=== PATIENT | female | born 1990 | race Caucasian/White ===

== ENCOUNTER 2022-06-14 08:58 | Inpatient (IN) | payer MEDICAID, SELFPAY ==
--- NOTE | ~2022-06-14 | CT_ITS ---
CT of the Abdomen and Pelvis: Indication: Abdominal pain Technique: 2.5 mm axial scans were obtained through the abdomen and pelvis following intravenous adm inistration of 100 cc of Omnipaque 350. Dose reduction technique was used on this scan by utilizing a utomated exposure control and iterative reconstruction technique. The dose-length product (DLP) was 3 22.90 mGy-cm. Findings: Scans through the lung bases are unremarkable. The liver, spleen, adrenals and kidneys are within normal limits. Cholecystectomy clips are present. No evidence of aortic aneurysm. No lymphadenopathy. Suggestion of minimal inflammatory change in the groove between the pancreas and duodenum, with a 1.1 cm low-density mass or possible cystic structur e (coronal image 47). No bowel obstruction or bowel wall thickening. There is no evidence to suggest acute appendicitis. Images through the pelvis were performed. Urinary bladder unremarkable. No adnexal mass seen. No asci ra. Impression: Probable mild inflammatory change between the pancreatic head and duodenum. Consider peptic ulcer dis ease, duodenitis, or groove pancreatitis. Associated 1.1 cm low-density mass or cystic structure iden tified in the pancreatic head or within the pancreaticoduodenal groove. Correlate clinically. Conside r short-term follow-up exam in 1-3 months to reassess. Reviewed, dictated and finalized at location M. Impression: Probable mild inflammatory change between the pancreatic head and duodenum. 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 Associated 1.1 cm low-density mass or cystic structure identified in the pancreatic head or wi thin the pancreaticoduodenal groove. Correlate clinically. Consider short-term follow-up exam in 1-3 months to reassess.
[2022-06-14 09:01] VITALS: BP 98/68; PULSE 129; RESP 20; TEMP 36.8; O2SAT 99
--- NOTE | 2022-06-14 09:07 | ECG_ITS ---
Measurements Intervals [place] Rate: 116 P: 72 PA: 127 QRS: 78 QRSD: 96 T: 28 QT: 381 QTc: 529 Interpretive Statements SINUS TACHYCARDIA NONSPECIFIC ST & T-WAVE ABNORMALITY ABNORMAL RHYTHM ECG NO PREVIOUS ECG AVAILABLE FOR COMPARISON Electronically Signed On 06-14-2022 10:43:44 CDT by Tino Cleary M.D.
--- NOTE | 2022-06-14 09:09 | PC.NURSE ---
Patient reports taking xanax yesterday.
[2022-06-14] MEDS: SODIUM CHLORIDE 0.9% IV 1,000 ML 999 ML IV CONT (09:20)
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
[2022-06-14] MEDS: PROMETHAZINE HCL 25 MG/ML AMPUL 12.5 MG IV PUSH (09:21)
[2022-06-14 09:34] LABS: Basophils Percent Auto 0.4 % (0.2-1.2); Eosinophils Percent Auto 0.4 % (0-4.4); Hematocrit 51.9 % (37.0-47.0); Hemoglobin 18.3 g/dL (12.0-15.0); Immature Granulocyte Absolute 0.04 K/mm3 (0.00-0.031); Immature Granulocyte Percent A 0.4 % (0-0.5); Lymphocytes Absolute Auto 2.38 K/mm3 (0.9-3.2); Lymphocytes Percent Auto 21.4 % (18.3-44.2); Mean Corpuscular HGB Conc 35.3 g/dl (32-36); Mean Corpuscular Hemoglobin 34.9 pg (26-34); Mean Platelet Volume 9.2 fl (7.4-10.4); Monocytes Absolute Auto 1.3 K/mm3 (0.1-0.6); Monocytes Percent Auto 11.7 % (2.6-8.5); Neutrophils Absolute Auto 7.3 K/mm3 (1.3-6.7); Neutrophils Percent Auto 65.7 % (45.5-73.1); Platelet Count Result 363 k/mm3 (150-375); Red Blood Count 5.24 M/mm3 (4.2-5.4); Red Cell Distribution Width 12.5 % (11.5-14.5); White Blood Count 11.1 K/mm3 (4.5-10.0)
[2022-06-14 09:48] LABS: Alanine Aminotransferase 69 U/L (6-35); Albumin Level 5.5 g/dL (3.5-5.1); Alkaline Phosphatase 109 U/L (38-126); Anion Gap 18 mmol/L (8-16); Aspartate Amino Transferase 74 U/L (14-36); Bilirubin,Total 1.5 mg/dL (0.2-1.3); Blood Urea Nitrogen 29 mg/dL (7-17); Calcium 10.4 mg/dL (8.4-10.2); Carbon Dioxide 30 mmol/L (22-30); Chloride 81 mmol/L (98-107); Estimated CRCL calculation 59 ml/min; Estimated Glomerular Filt Rate 58; Glucose 123 mg/dL (65-110); Lipase 118 U/L (23-300); Potassium 2.9 mmol/L (3.4-5.0); Sodium 129 mmol/L (137-145)
[2022-06-14 10:29] VITALS: BP 147/100; PULSE 112; RESP 18; O2SAT 100
[2022-06-14 10:30] VITALS: O2SAT 100
[2022-06-14] MEDS: ONDANSETRON INJ 4 MG/2 ML VIAL IV PUSH ×3 (10:51→20:59)
[2022-06-14 11:07] VITALS: BP 134/95; PULSE 74; RESP 15; O2SAT 100
[2022-06-14 11:41] LABS: Appearance Urine Clear (Clear); Bacteria Urine None Seen /hpf; Bilirubin Urine Negative (Negative); Blood Urine Trace (Negative); Color Urine Dark Yellow (Yellow); Glucose Urine UA Negative (Negative); Ketones Urine 4+ mg/dL (Negative); Leukocyte Esterase Ur 1+ LEU/UL (Negative); Need Manual Microscopic Reviewed; Nitrate Urine Negative (Negative); Protein Urine 1+ mg/dL (Negative); RBC Urine 0-2 /hpf (0-2); Specific Grav Ur 1.022 (1.001-1.035); Squamous Epithelial Cell Urine Moderate /hpf (Few)
[2022-06-14 11:43] LABS: Add Urine Microscopic? YES
[2022-06-14] MEDS: LACTATED RINGERS 1,000 ML 999 ML IV CONT (12:13)
[2022-06-14] MEDS: PANTOPRAZOLE SODIUM IV 40 MG VIAL IV PUSH (15:14)
[2022-06-14 15:15] VITALS: BP 132/91; PULSE 93; RESP 18; O2SAT 98
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
[2022-06-14 16:41] VITALS: BMI 23.6
--- NOTE | 2022-06-14 16:46 | ADMGEN ---
This patient, Paige Ozuna, was admitted to [facility] Surg Room 315-02 at 1620. Patient/family oriented to hospital policies and general routines including ID bracelet, bed and alarms, visiting hours, pain management, procedures, bathroom and other care routines, personal items, smoking policy, room service/diet, and visiting hours. Information on how to activate the Rapid Response Team has been discussed. Patient/Family are encouraged to report perceived risks to care and to ask questions if they do not understand what they are told or what they should do.
[2022-06-14] MEDS: SODIUM CHLORIDE 0.9% IV 1,000 ML 125 ML IV CONT (16:55)
[2022-06-14] MEDS: HYDROmorphone HCL INJ (*CRX) 1 MG/ML SYR 0.5 MG IV PUSH ×2 (16:55→20:18)
[2022-06-14 21:01] VITALS: BP 123/83; PULSE 88; RESP 16; TEMP 36.4; O2SAT 97
[2022-06-15] MEDS: SODIUM CHLORIDE 0.9% IV 1,000 ML 125 ML IV CONT ×2 (02:38→22:06)
[2022-06-15] MEDS: ONDANSETRON INJ 4 MG/2 ML VIAL IV PUSH ×5 (03:14→22:25)
[2022-06-15] MEDS: HYDROmorphone HCL INJ (*CRX) 1 MG/ML SYR 0.5 MG IV PUSH ×6 (03:15→22:25)
[2022-06-15 05:33] VITALS: BP 119/80; PULSE 90; RESP 16; TEMP 36.5; O2SAT 97
[2022-06-15 06:37] LABS: Lactic Acid Reflex 0.7 mmol/L (0.7-2.0)
[2022-06-15 06:41] LABS: Alanine Aminotransferase 58 U/L (6-35); Albumin Level 3.6 g/dL (3.5-5.1); Alkaline Phosphatase 56 U/L (38-126); Anion Gap 7 mmol/L (8-16); Aspartate Amino Transferase 59 U/L (14-36); Bilirubin,Total 0.9 mg/dL (0.2-1.3); Blood Urea Nitrogen 25 mg/dL (7-17); Calcium 7.8 mg/dL (8.4-10.2); Carbon Dioxide 31 mmol/L (22-30); Chloride 93 mmol/L (98-107); Estimated CRCL calculation 72 ml/min; Estimated Glomerular Filt Rate > 60; Glucose 73 mg/dL (65-110); Lipase 164 U/L (23-300); Potassium 2.7 mmol/L (3.4-5.0); Sodium 131 mmol/L (137-145)
[2022-06-15 07:01] LABS: Basophils Percent Auto 0.4 % (0.2-1.2); Eosinophils Absolute Auto 0.1 K/mm3 (0-0.3); Eosinophils Percent Auto 2.7 % (0-4.4); Hematocrit 38.9 % (37.0-47.0); Hemoglobin 13.3 g/dL (12.0-15.0); Immature Granulocyte Absolute 0.01 K/mm3 (0.00-0.031); Immature Granulocyte Percent A 0.2 % (0-0.5); Lymphocytes Absolute Auto 2.34 K/mm3 (0.9-3.2); Lymphocytes Percent Auto 45.5 % (18.3-44.2); Mean Corpuscular HGB Conc 34.2 g/dl (32-36); Mean Corpuscular Hemoglobin 35.4 pg (26-34); Mean Corpuscular Volume 103.5 fl (80-100); Mean Platelet Volume 9.2 fl (7.4-10.4); Monocytes Absolute Auto 0.5 K/mm3 (0.1-0.6); Monocytes Percent Auto 10.5 % (2.6-8.5); Neutrophils Absolute Auto 2.1 K/mm3 (1.3-6.7); Neutrophils Percent Auto 40.7 % (45.5-73.1); Platelet Count Result 195 k/mm3 (150-375); Red Blood Count 3.76 M/mm3 (4.2-5.4); Red Cell Distribution Width 12.3 % (11.5-14.5); White Blood Count 5.1 K/mm3 (4.5-10.0)
[2022-06-15] MEDS: POTASSIUM CHLORIDE INJ 40 MEQ in SODIUM CHLORIDE 0.9% IV 500 ML 130 MEQ IVPB ×2 (09:45→15:28)
[2022-06-15] MEDS: PANTOPRAZOLE SODIUM IV 40 MG VIAL IV PUSH (09:45)
[2022-06-15] MEDS: NICOTINE (*PBKC) 21 MG PATCH 1 PATCH TRANSDERM (09:45)
[2022-06-15 12:46] LABS: Potassium 3.2 mmol/L (3.4-5.0)
[2022-06-15 13:02] VITALS: BMI 23.6
[2022-06-15 14:00] VITALS: BP 124/79; PULSE 68; RESP 18; TEMP 36.4; O2SAT 99
--- NOTE | 2022-06-15 14:29 | PM.IMPN ---
Progress Note: A&P Assessment and Plan (1) Chronic pancreatitis: Code(s): K86.1 - Other chronic pancreatitis Status: Acute Assessment and Plan: The patient is NPO until she is less nauseated. CT of the abdomen was read as probable mild inflammatory change between the pancreatic head and duodenum. Consider peptic ulcer disease, duodenitis, or groove pancreatitis. Associated 1.1 cm low-density mass or cystic structure identified in the pancreatic head or within the pancreaticoduodenal groove. Correlate clinically. Consider short-term follow-up exam in 1-3 months to reassess. GI consulted The patient has been encouraged to stop drinking alcohol. Lipase level normal Analgesics and antiemetics as needed. IV fluids continued Pantoprazole BID (2) HPV in female: Code(s): B97.7 - Papillomavirus as the cause of diseases classified elsewhere Status: Acute Assessment and Plan: The patient stated that she was scheduled for colposcopy due to abnormal cervical cells and positive for HPV. However the patient was feeling ill and did not make it to her appointment. Patient will need to reschedule her outpatient appointment. (3) Tobacco use: Code(s): Z72.0 - Tobacco use Status: Acute Assessment and Plan: The patient has been encouraged to stop smoking. She was offered a nicotine patch. We discussed smoking cessation for approximately 5 minutes. Subjective Date/time seen: 06/15/22 14:29 Interval history: Patient complains of ongoing abdominal pain that radiates to the back. Patient's nausea has improved she has not vomited since she has been admitted to the floor. Patient states that she know she needs to cut back on her drinking and stop smoking. Patient states that she has several shots of whiskey a day. Review of Systems Review of Systems: All systems reviewed & are unremarkable except as noted in HPI and below Exam Narrative: GENERAL: Comfortable, no acute distress HENMT: moist mucous membranes EYES: EOM intact b/l NECK: no lymphadenopathy RESPIRATORY: clear to auscultation CARDIO: RRR GI: soft, tender to palpation, bowel sounds present SKIN: no rashes EXTREMITIES: no edema, redness or tenderness Objective Data Vital Signs Vital Signs: Vital Signs - 24 hr 06/14/22 15:15 06/14/22 18:16 06/14/22 21:01 Temperature 97.6 F Pulse Rate 93 88 Respiratory Rate 18 16 Blood Pressure 132/91 H 123/83 Pulse Oximetry 98 97 Oxygen Delivery Room Air 06/14/22 20:00 06/15/22 05:33 06/15/22 08:00 Temperature 97.7 F Pulse Rate 90 Respiratory Rate 16 Blood Pressure 119/80 Pulse Oximetry 97 Oxygen Delivery Room Air Room Air Intake/Output Intake/Output: Intake & Output 06/12/22 06/13/22 06/14/22 06/15/22 23:59 23:59 23:59 23:59 Intake Total 1999 1000 Balance 1999 1000 Meds/Results Medications: Active Medications Generic Name Dose Route Start Last Admin Trade Name Freq PRN Reason Stop Dose Admin Albuterol 2 puff 06/14/22 16:48 Albuterol Sulfate (*Sp) Aerosol 1 Puff INHALATION Q6HRT PRN Shortness Of Breath Hydromorphone HCl 0.5 mg 06/14/22 16:05 06/15/22 13:31 Hydromorphone Hcl Inj (*Crx) 1 Mg/Ml Syr IV PUSH 0.5 mg Q3H PRN Administration Pain Rated 7-10 Sodium Chloride 1,000 mls @ 125 mls/hr 06/14/22 15:15 06/15/22 02:38 Normal Saline Iv IV CONT 125 mls/hr .Q8H IONA Administration Potassium Chloride 40 meq/ 520 mls @ 130 mls/hr 06/15/22 14:24 Sodium Chloride IVPB 06/15/22 18:23 ONCE ONE Ketorolac Tromethamine 15 mg 06/14/22 16:05 Ketorolac 15 Mg/Ml Vial (*Bkc) IV PUSH Q6H PRN Pain Rated 4-6 Lorazepam 0.5 mg 06/14/22 16:05 Lorazepam Inj (*Crx) 2 Mg/Ml Vial IV PUSH Q6H PRN Anxiety Nicotine 1 patch 06/15/22 09:00 06/15/22 09:45 Nicotine (*Pbkc) 21 Mg Patch TRANSDERM 1 patch QAM
[2022-06-15] MEDS: KETOROLAC 15 MG/ML VIAL (*BKC) IV PUSH (17:10)
--- NOTE | 2022-06-15 18:53 | PC.NURSE ---
at 1825 pt used call light and asked to speak to nurse. nurse went to see pt at 1830 and pt c/o pain 7 out of 10. pt states the toradol helped at first but the pain quickly came back with a vengeance. pt was then given a dose of dilaudid at 1834. will reassess pain level at appropriate time
[2022-06-15 20:00] VITALS: O2SAT 100
[2022-06-15] MEDS: LORazepam INJ (*CRX) 2 MG/ML VIAL 0.5 MG IV PUSH (20:23)
[2022-06-15 20:28] VITALS: PULSE 82; RESP 18
[2022-06-15] MEDS: ALBUTEROL SULFATE (*SP) AEROSOL 1 PUFF 2 PUFF INHALATION (20:28)
[2022-06-15 21:30] VITALS: BP 127/92; PULSE 78; RESP 16; TEMP 36.1; O2SAT 100
[2022-06-15] MEDS: MELATONIN 5 MG TABLET PO (23:15)
[2022-06-16] MEDS: LORazepam INJ (*CRX) 2 MG/ML VIAL 0.5 MG IV PUSH ×3 (01:53→18:17)
[2022-06-16] MEDS: SODIUM CHLORIDE 0.9% IV 1,000 ML 125 ML IV CONT (04:49)
[2022-06-16] MEDS: HYDROmorphone HCL INJ (*CRX) 1 MG/ML SYR 0.5 MG IV PUSH ×5 (05:20→18:17)
[2022-06-16] MEDS: ONDANSETRON INJ 4 MG/2 ML VIAL IV PUSH ×4 (05:20→19:56)
[2022-06-16 05:44] VITALS: BP 127/80; PULSE 69; RESP 16; TEMP 36.1; O2SAT 100
[2022-06-16 06:06] LABS: Basophils Percent Auto 0.4 % (0.2-1.2); Eosinophils Absolute Auto 0.2 K/mm3 (0-0.3); Eosinophils Percent Auto 5.4 % (0-4.4); Hematocrit 41.1 % (37.0-47.0); Immature Granulocyte Absolute 0.01 K/mm3 (0.00-0.031); Immature Granulocyte Percent A 0.2 % (0-0.5); Lymphocytes Absolute Auto 2.35 K/mm3 (0.9-3.2); Lymphocytes Percent Auto 52.7 % (18.3-44.2); Mean Corpuscular HGB Conc 34.1 g/dl (32-36); Mean Corpuscular Hemoglobin 34.7 pg (26-34); Mean Corpuscular Volume 101.7 fl (80-100); Monocytes Absolute Auto 0.5 K/mm3 (0.1-0.6); Monocytes Percent Auto 10.8 % (2.6-8.5); Neutrophils Absolute Auto 1.4 K/mm3 (1.3-6.7); Neutrophils Percent Auto 30.5 % (45.5-73.1); Platelet Count Result 195 k/mm3 (150-375); Red Blood Count 4.04 M/mm3 (4.2-5.4); Red Cell Distribution Width 11.8 % (11.5-14.5); White Blood Count 4.5 K/mm3 (4.5-10.0)
[2022-06-16 06:28] LABS: Alanine Aminotransferase 49 U/L (6-35); Albumin Level 3.4 g/dL (3.5-5.1); Alkaline Phosphatase 51 U/L (38-126); Anion Gap 13 mmol/L (8-16); Aspartate Amino Transferase 38 U/L (14-36); Bilirubin,Total 1.1 mg/dL (0.2-1.3); Blood Urea Nitrogen 18 mg/dL (7-17); Calcium 7.4 mg/dL (8.4-10.2); Carbon Dioxide 18 mmol/L (22-30); Chloride 100 mmol/L (98-107); Estimated CRCL calculation 80 ml/min; Estimated Glomerular Filt Rate > 60; Glucose 61 mg/dL (65-110); Magnesium 1.9 mg/dL (1.6-2.3); Potassium 3.2 mmol/L (3.4-5.0); Sodium 131 mmol/L (137-145)
--- NOTE | 2022-06-16 07:08 | WPDGICN ---
Assessment and Plan Assessment and plan (1) Intractable vomiting: Code(s): R11.10 - Vomiting, unspecified Status: Acute Assessment and Plan: It appears that her symptoms are due to recurrence of pancreatitis. I suspect this is the 2nd episode of acute pancreatitis although her lipase is now normal. she has not vomited since admission. I will try her on a clear liquid diet today. (2) Chronic pancreatitis: Code(s): K86.1 - Other chronic pancreatitis Status: Acute Assessment and Plan: She had 1 prior episode of pancreatitis 6 months ago. She was told that she had a cyst draining into her stomach. It almost sounds as though she had endoscopic drainage of the pseudocyst but she does not I think that she had any endoscopy on her previous admission.. I discussed with her the fact that she needs to stop drinking alcohol altogether. She does not have a great deal of support because most of her friends, coworkers, and both her parents drink regularly. (3) Duodenitis: Code(s): K29.80 - Duodenitis without bleeding Status: Acute Assessment and Plan: CT scan shows: Probable mild inflammatory change between the pancreatic head and duodenum. Consider peptic ulcer disease, duodenitis, or groove pancreatitis. Associated 1.1 cm low-density mass or cystic structure identified in the pancreatic head or within the pancreaticoduodenal groove. Correlate clinically. Consider short-term follow-up exam in 1-3 months to reassess. (4) Hypokalemia: Code(s): E87.6 - Hypokalemia Status: Acute Assessment and Plan: potassium was 2.9 at admission. It Has improved, now 3.2. (5) Abnormal liver function: Code(s): R94.5 - Abnormal results of liver function studies Status: Acute Assessment and Plan: on admission, bilirubin was 1.5. Now is 0.9. LFTs were also elevated but improving. Plan Will advance diet as tolerated. Further investigation probably EGD in the morning. Most poorly, she will need counseling and guidance with her alcohol problem GI Consult Note Consult date/time: 06/16/22 07:08 HPI: Paige Ozuna is a 31 year old female Was admitted with 1 week history of nausea vomiting abdominal pain. The pain has gradually improved. Because of her symptoms she has had nothing to eat or drink for about 1 week. On admission she was found to be hypokalemic with potassium of 2.9. Sodium was also low at 129. She has a normal lipase but CT scan shows changes suggestive of pancreatitis with inflammatory changes between the head of the pancreas and the duodenum. The patient states that about 6 months ago she was hospitalized in [place] with pancreatitis. 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 She does not believe that she had a procedure such as ERCP or endoscopic ultrasound. She admits that her problem is drinking. She drinks [place] honey whiskey. She had cut back but never could completely. She has no history of pancreatitis or liver disease. Her gallbladder has been removed. There is no family history of pancreatic disease but there is a strong family history of alcohol use. Both of her parents drink alcohol heavily. Review of Systems Review of Systems: All systems reviewed & are unremarkable except as noted in HPI and below PMFSH Past Medical History Medical History Chronic pancreatitis HPV in female Surgical History Surgical History H/O oral surgery History of cholecystectomy Family History Family History Mother Hypertension Diabetes mellitus Cervical cancer Grandparent Breast cancer Social History Social History Social History: She lives with parents . She has no chi
[2022-06-16] MEDS: PANTOPRAZOLE SODIUM IV 40 MG VIAL IV PUSH ×2 (08:36→17:53)
[2022-06-16] MEDS: NICOTINE (*PBKC) 21 MG PATCH 1 PATCH TRANSDERM (08:36)
[2022-06-16] MEDS: ALBUTEROL SULFATE (*SP) AEROSOL 1 PUFF 2 PUFF INHALATION ×2 (08:45→18:37)
[2022-06-16 10:17] LABS: Glucose Point of Care 153 mg/dl (65-105)
--- NOTE | 2022-06-16 10:17 | PM.IMPN ---
Progress Note: A&P Assessment and Plan (1) Chronic pancreatitis: Code(s): K86.1 - Other chronic pancreatitis Status: Acute Assessment and Plan: Patient presented to the ED with c/o nausea and vomiting since Tuesday of last week. She has h/o pancreatitis and chronic alcohol abuse. CT of the abdomen was read as probable mild inflammatory change between the pancreatic head and duodenum. Consider peptic ulcer disease, duodenitis, or groove pancreatitis. Associated 1.1 cm low-density mass or cystic structure identified in the pancreatic head or within the pancreaticoduodenal groove. Correlate clinically. Consider short-term follow-up exam in 1-3 months to reassess. GI consulted and appreciate recommendations. Future EGD recommended. The patient has been encouraged to stop drinking alcohol. Consult care coordination for resources. Lipase level normal continue IV/PO analgesics and antiemetics as needed. continue IV fluids until taking good PO. Pantoprazole BID IV advanced to clear liquid diet today 06/16 (2) Tobacco use: Code(s): Z72.0 - Tobacco use Status: Chronic Assessment and Plan: The patient has been encouraged to stop smoking. She was offered a nicotine patch. We discussed smoking cessation for approximately 5 minutes. (3) Abnormal liver function: Code(s): R94.5 - Abnormal results of liver function studies Status: Acute Assessment and Plan: on admission T bili 1.5, AST 74, ALT 69, alk phos 109 CT shows liver within normal limits and patient is s/p cholecystectomy in the past She does have history of chronic alcohol use. Trend LFTs-T bili normalized and AST ALT trending down GI is following check hepatitis panel Alcohol abstinence was discussed in length with patient (4) Duodenitis: Code(s): K29.80 - Duodenitis without bleeding Status: Acute Assessment and Plan: Suggested on CT scan. Patient does have epigastric pain with complaints of indigestion. Continue PPI IV b.i.d. GI following and plans for EGD, possibly tomorrow 06/17 (5) Hypokalemia: Code(s): E87.6 - Hypokalemia Status: Acute Assessment and Plan: K 2.7 on admission. Replace with p.o. and IV supplements. 06/16 K 3.2, magnesium 1.9. Give potassium chloride 60 mEq p.o. x1 Patient is now. Trend BMP and supplement electrolytes as needed (6) Alcohol abuse: Code(s): F10.10 - Alcohol abuse, uncomplicated Status: Chronic Assessment and Plan: Chronic, last drink approximately 1 week ago per patient. Counseled on alcohol cessation. Care coordination consulted for community resources. We discussed briefly Vivitrol medication management for alcohol abuse and she may be interested in pursuing this. P.o. thiamin 100 mg daily and folic acid p.o. 1 mg daily initiated. Monitor CIWA (7) HPV in female: Code(s): B97.7 - Papillomavirus as the cause of diseases classified elsewhere Status: Acute Assessment and Plan: The patient stated that she was scheduled for colposcopy due to abnormal cervical cells and positive for HPV. However the patient was feeling ill and did not make it to her appointment. Patient will need to reschedule her outpatient appointment. Plan Code status: Full code Discharge disposition: Patient is from home. Discharge when tolerating a low-fat diet. Time Spent With Patient Time: 35 minutes Subjective Date/time seen: 06/16/22 10:17 She still has some epigastric pain, although it is tolerable with pain medications. She was advanced to clear liquids today and has some nausea with eating soup, but attributes this to eating too fast. Glucose was low on morning labs and she did report some shakiness. Repeat glucose 153 mg/dL after eating. She denies h/o diabetes, but does have chronic pancreatitis and reports not eating for approximately 1 week. Review of Systems Revsteven
[2022-06-16 11:26] LABS: Glucose Point of Care 121 mg/dl (65-105)
[2022-06-16] MEDS: POTASSIUM CHLORIDE 20 MEQ PACKET (FOR LIQUID) 60 MEQ PO (11:57)
[2022-06-16] MEDS: FOLIC ACID 1 MG TABLET PO (11:57)
[2022-06-16] MEDS: THIAMINE HCL 100 MG TABLET PO (11:57)
--- NOTE | 2022-06-16 12:18 | PC.NURSE ---
pt was able to eat breakfast today. she had a clear liquid tray and ate most of it. pt reports she felt slightly nauseated at first but when she slowed down eating, the nausea subsided and she was able to eat comfortably. pt also reports that she was able to keep this food down. pt states that this is the first time she was able to eat and not vomit in over a week.
[2022-06-16 14:00] VITALS: BP 126/62; PULSE 71; RESP 16; TEMP 36.3; O2SAT 100
[2022-06-16 16:33] LABS: Glucose Point of Care 81 mg/dl (65-105)
[2022-06-16 17:04] LABS: Hepatitis B Surface Antigen Negative (Negative)
[2022-06-16 17:10] LABS: HAV RESULT Negative (Negative); Hepatitis B Core IgM Result Negative (Negative)
[2022-06-16 17:22] LABS: Hepatitis C Virus Antibody Negative (Negative)
[2022-06-16 20:00] VITALS: BP 139/86; PULSE 73; RESP 16; O2SAT 100
[2022-06-16 21:49] VITALS: BP 139/86; PULSE 73; RESP 16; TEMP 36.1; O2SAT 100
[2022-06-16 23:18] LABS: Glucose Point of Care 77 mg/dl (65-105)
[2022-06-17] VITALS (11 sets, daily range): BP systolic 103–148; BP diastolic 75–90; PULSE 60–73; RESP 14–20; TEMP 36.1–36.8; O2SAT 100
[2022-06-17 00:15] LABS: Glucose Point of Care 130 mg/dl (65-105)
[2022-06-17] MEDS: LORazepam INJ (*CRX) 2 MG/ML VIAL IV PUSH ×3 (01:22→20:12)
[2022-06-17] MEDS: ONDANSETRON INJ 4 MG/2 ML VIAL IV PUSH ×4 (01:22→17:11)
[2022-06-17] MEDS: HYDROmorphone HCL INJ (*CRX) 1 MG/ML SYR 0.5 MG IV PUSH ×4 (01:23→21:52)
[2022-06-17 05:51] LABS: Glucose Point of Care 90 mg/dl (65-105)
[2022-06-17 06:17] LABS: Hematocrit 40.5 % (37.0-47.0); Mean Corpuscular HGB Conc 34.6 g/dl (32-36); Mean Corpuscular Hemoglobin 35.4 pg (26-34); Mean Corpuscular Volume 102.5 fl (80-100); Mean Platelet Volume 9.3 fl (7.4-10.4); Platelet Count Result 190 k/mm3 (150-375); Red Blood Count 3.95 M/mm3 (4.2-5.4); Red Cell Distribution Width 11.9 % (11.5-14.5); White Blood Count 5.6 K/mm3 (4.5-10.0)
[2022-06-17 06:32] LABS: Alanine Aminotransferase 48 U/L (6-35); Albumin Level 3.6 g/dL (3.5-5.1); Alkaline Phosphatase 54 U/L (38-126); Anion Gap 5 mmol/L (8-16); Aspartate Amino Transferase 37 U/L (14-36); Bilirubin,Total 0.7 mg/dL (0.2-1.3); Blood Urea Nitrogen 6 mg/dL (7-17); Calcium 8.1 mg/dL (8.4-10.2); Carbon Dioxide 26 mmol/L (22-30); Chloride 105 mmol/L (98-107); Estimated CRCL calculation 80 ml/min; Estimated Glomerular Filt Rate > 60; Glucose 87 mg/dL (65-110); Magnesium 2.1 mg/dL (1.6-2.3); Potassium 3.4 mmol/L (3.4-5.0); Sodium 136 mmol/L (137-145)
[2022-06-17 06:47] LABS: INR 1.2; Partial Thromboplastin Time 28.1 SECONDS (22.3-36.8); Prothrombin Time 14.4 Seconds (11.1-14.7)
[2022-06-17] MEDS: SODIUM CHLORIDE 0.9% IV 1,000 ML 125 ML IV CONT ×2 (08:29→21:23)
[2022-06-17] MEDS: PANTOPRAZOLE SODIUM IV 40 MG VIAL IV PUSH ×2 (11:16→17:11)
[2022-06-17 11:18] LABS: Glucose Point of Care 80 mg/dl (65-105)
[2022-06-17] MEDS: LACTATED RINGERS 1,000 ML 150 ML IV CONT (13:35)
--- NOTE | 2022-06-17 14:56 | WPDANESEPPF ---
Anes - Initial Pre Proc Eval Procedure: Operation Date: 06/17/22 15:45 Proposed Procedures p Esophagogastroduodenoscopy - Jed Bell MD Date/Time: 06/17/22 14:56 Surgeon: César Augustine MD Pre Op Diagnosis: Intractable Vomiting/Duodenitis/Chronic Pancreatit Patient Data Age: 31 Gender: F Height: 1.65 m Weight: 64.5 kg Last Vital Signs Temp 36.2 C L 06/17/22 13:25 Pulse 60 06/17/22 13:25 Resp 18 06/17/22 13:25 BP 142/90 H 06/17/22 13:25 Pulse Ox 100 06/17/22 13:25 O2 Del Method Room Air 06/17/22 13:25 Allergies Allergy/AdvReac Type Severity Reaction Status Date / Time No Known Allergies Allergy Verified 06/14/22 09:08 Home Medications Medication Instructions Recorded Confirmed Type esomeprazole magnesium 20 mg 20 mg PO DAILY 06/14/22 06/14/22 History capsule,delayed release (Nexium) ibuprofen 800 mg tablet 800 mg PO TID 06/14/22 06/14/22 History ondansetron HCl 8 mg tablet 8 mg PO TID 06/14/22 06/14/22 History Laboratory Tests 06/16/22 06/16/22 06/16/22 05:55 16:31 23:14 WBC RBC Hgb Hct MCV MCH MCHC RDW Plt Count MPV PT INR APTT Sodium Potassium Chloride Carbon Dioxide Anion Gap BUN Creatinine Estim Creat Clear Calc Estimated GFR Glucose POC Capillary Glucose 81 mg/dl mg/dl 77 mg/dl mg/dl (65-105) (65-105) Calcium Magnesium Total Bilirubin AST ALT Alkaline Phosphatase Total Protein Albumin Hepatitis A IgM Ab Negative (Negative) Hep Bs Antigen Negative (Negative) Hep B Core IgM Ab Negative (Negative) Hepatitis C Ab Screen Negative (Negative) 06/17/22 06/17/22 06/17/22 00:12 05:49 06:03 WBC 5.6 K/mm3 K/mm3 (4.5-10.0) RBC 3.95 M/mm3 L M/mm3 (4.2-5.4) Hgb 14.0 g/dL g/dL (12.0-15.0) Hct 40.5 % % (37.0-47.0) MCV 102.5 fl H fl (80-100) MCH 35.4 pg H pg (26-34) MCHC 34.6 g/dl g/dl (32-36) RDW 11.9 % % (11.5-14.5) Plt Count 190 k/mm3 k/mm3 (150-375) MPV 9.3 fl fl (7.4-10.4) PT INR APTT Sodium Potassium Chloride Carbon Dioxide Anion Gap BUN Creatinine Estim Creat Clear Calc Estimated GFR Glucose POC Capillary Glucose 130 mg/dl H mg/dl 90 mg/dl mg/dl (65-105) (65-105) Calcium Magnesium Total Bilirubin AST ALT Alkaline Phosphatase Total Protein Albumin Hepatitis A IgM Ab Hep Bs Antigen Hep B Core IgM Ab Hepatitis C Ab Screen 06/17/22 06/17/22 06/17/22 06:03 06:03 11:16 WBC RBC Hgb Hct MCV MCH MCHC RDW Plt Count MPV PT 14.4 Seconds Seconds (11.1-14.7) INR 1.2 APTT 28.1 SECONDS SECONDS (22.3-36.8) Sodium 136 mmol/L L mmol/L (137-145) Potassium 3.4 mmol/L mmol/L (3.4-5.0) Chloride 105 mmol/L mmol/L (98-107) Carbon Dioxide 26 mmol/L mmol/L (22-30) Anion Gap 5 mmol/L L mmol/L (8-16) BUN 6 mg/dL L D mg/dL (7-17) Creatinine 0.80 mg/dL mg/dL (0.7-1.0) Estim Creat Clear Calc 80 ml/min ml/min Estimated GFR > 60 (59 - ) G
[2022-06-17] MEDS: fentaNYL CITRATE INJ (*CRX) 100 MCG/2 ML VIAL 50 MCG IV PUSH (15:01)
--- NOTE | 2022-06-17 15:36 | P.PNIM_ITS ---
Progress Note: A&P Assessment and Plan (1) Chronic pancreatitis: Code(s): K86.1 - Other chronic pancreatitis Status: Acute Assessment and Plan: Patient presented to the ED with c/o nausea and vomiting since Tuesday of last week. She has h/o pancreatitis and chronic alcohol abuse. * CT of the abdomen was read as probable mild inflammatory change between the pancreatic head and duodenum. Consider peptic ulcer disease, duodenitis, or groove pancreatitis. Associated 1.1 cm low-density mass or cystic structure identified in the pancreatic head or within the pancreaticoduodenal groove. Correlate clinically. Consider short-term follow-up exam in 1-3 months to reassess. * GI consulted and appreciate recommendations. * The patient has been encouraged to stop drinking alcohol. Consult care coordination for resources. * Lipase level normal * continue IV/PO analgesics and antiemetics as needed. * continue IV fluids until taking good PO. * Pantoprazole BID IV * advanced to clear liquid diet today 06/16 (2) Tobacco use: Code(s): Z72.0 - Tobacco use Status: Chronic Assessment and Plan: The patient has been encouraged to stop smoking. She was offered a nicotine patch. We discussed smoking cessation for approximately 5 minutes. (3) Abnormal liver function: Code(s): R94.5 - Abnormal results of liver function studies Status: Acute Assessment and Plan: on admission T bili 1.5, AST 74, ALT 69, alk phos 109 * CT shows liver within normal limits and patient is s/p cholecystectomy in the past * She does have history of chronic alcohol use. * Trend LFTs-T bili normalized and AST ALT trending down * GI is following * Hepatitis panel pending * Alcohol abstinence was discussed in length with patient (4) Duodenitis: Code(s): K29.80 - Duodenitis without bleeding Status: Acute Assessment and Plan: Suggested on CT scan. Patient does have epigastric pain with complaints of indigestion. * Continue PPI IV b.i.d. * EGD today and results pending. (5) Hypokalemia: Code(s): E87.6 - Hypokalemia Status: Acute Assessment and Plan: K 2.7 on admission. Replace with p.o. and IV supplements. * 06/16 K 3.2, magnesium 1.9. Give potassium chloride 60 mEq p.o. x1 * 06/17 K 3.4 today, give 40 mEQ PO KCl x1 and start daily supplement. (6) Alcohol abuse: Code(s): F10.10 - Alcohol abuse, uncomplicated Status: Chronic Assessment and Plan: Chronic, last drink approximately 1 week ago per patient. * Counseled on alcohol cessation. * Care coordination consulted for community resources. * We discussed briefly Vivitrol medication management for alcohol abuse and she may be interested in pursuing this. * P.o. thiamine 100 mg daily and folic acid p.o. 1 mg daily initiated. * CIWA score 1-6 and stable. Last drink 8 days ago. (7) HPV in female: Code(s): B97.7 - Papillomavirus as the cause of diseases classified elsewhere Status: Acute Assessment and Plan: The patient stated that she was scheduled for colposcopy due to abnormal cervical cells and positive for HPV. * However the patient was feeling ill and did not make it to her appointment. * Patient will need to reschedule her outpatient appointment. Plan Code status: Full code Discharge disposition: Patient is from home. Discharge when tolerating a low- fat diet. Time Spent With Patient Time: 25 minutes Subjective Date/time
--- NOTE | 2022-06-17 15:36 | PM.IMPN ---
Progress Note: A&P Assessment and Plan (1) Chronic pancreatitis: Code(s): K86.1 - Other chronic pancreatitis Status: Acute Assessment and Plan: Patient presented to the ED with c/o nausea and vomiting since Tuesday of last week. She has h/o pancreatitis and chronic alcohol abuse. CT of the abdomen was read as probable mild inflammatory change between the pancreatic head and duodenum. Consider peptic ulcer disease, duodenitis, or groove pancreatitis. Associated 1.1 cm low-density mass or cystic structure identified in the pancreatic head or within the pancreaticoduodenal groove. Correlate clinically. Consider short-term follow-up exam in 1-3 months to reassess. GI consulted and appreciate recommendations. The patient has been encouraged to stop drinking alcohol. Consult care coordination for resources. Lipase level normal continue IV/PO analgesics and antiemetics as needed. continue IV fluids until taking good PO. Pantoprazole BID IV advanced to clear liquid diet today 06/16 (2) Tobacco use: Code(s): Z72.0 - Tobacco use Status: Chronic Assessment and Plan: The patient has been encouraged to stop smoking. She was offered a nicotine patch. We discussed smoking cessation for approximately 5 minutes. (3) Abnormal liver function: Code(s): R94.5 - Abnormal results of liver function studies Status: Acute Assessment and Plan: on admission T bili 1.5, AST 74, ALT 69, alk phos 109 CT shows liver within normal limits and patient is s/p cholecystectomy in the past She does have history of chronic alcohol use. Trend LFTs-T bili normalized and AST ALT trending down GI is following Hepatitis panel pending Alcohol abstinence was discussed in length with patient (4) Duodenitis: Code(s): K29.80 - Duodenitis without bleeding Status: Acute Assessment and Plan: Suggested on CT scan. Patient does have epigastric pain with complaints of indigestion. Continue PPI IV b.i.d. EGD today and results pending. (5) Hypokalemia: Code(s): E87.6 - Hypokalemia Status: Acute Assessment and Plan: K 2.7 on admission. Replace with p.o. and IV supplements. 06/16 K 3.2, magnesium 1.9. Give potassium chloride 60 mEq p.o. x1 06/17 K 3.4 today, give 40 mEQ PO KCl x1 and start daily supplement. (6) Alcohol abuse: Code(s): F10.10 - Alcohol abuse, uncomplicated Status: Chronic Assessment and Plan: Chronic, last drink approximately 1 week ago per patient. Counseled on alcohol cessation. Care coordination consulted for community resources. We discussed briefly Vivitrol medication management for alcohol abuse and she may be interested in pursuing this. P.o. thiamine 100 mg daily and folic acid p.o. 1 mg daily initiated. CIWA score 1-6 and stable. Last drink 8 days ago. (7) HPV in female: Code(s): B97.7 - Papillomavirus as the cause of diseases classified elsewhere Status: Acute Assessment and Plan: The patient stated that she was scheduled for colposcopy due to abnormal cervical cells and positive for HPV. However the patient was feeling ill and did not make it to her appointment. Patient will need to reschedule her outpatient appointment. Plan Code status: Full code Discharge disposition: Patient is from home. Discharge when tolerating a low-fat diet. Time Spent With Patient Time: 25 minutes Subjective Date/time seen: 06/17/22 15:36 Interval history: She still has epigastric pain, indigestion and nausea. She has still been taking IV dilaudid, but has not tried oral pain medications as of yet. No emesis and she was tolerating clear liquids last night. EGD scheduled for today and she is NPO. She reports feeling a little nervous about this. No new complaints or overnight events. Review of Systems Review of Systems: All systems reviewed & are unremarkabl
[2022-06-17 17:07] LABS: Glucose Point of Care 127 mg/dl (65-105)
[2022-06-17] MEDS: POTASSIUM CHLORIDE 20 MEQ TABLET 40 MEQ PO (18:03)
[2022-06-17] MEDS: MELATONIN 5 MG TABLET PO (20:12)
[2022-06-17 22:02] LABS: Glucose Point of Care 102 mg/dl (65-105)
[2022-06-17] MEDS: ALBUTEROL SULFATE (*SP) AEROSOL 1 PUFF 2 PUFF INHALATION (23:16)
[2022-06-18] MEDS: HYDROcodone/acetaminophen (*CRX) 5-325 MG TABLET 1 TAB PO ×5 (00:11→20:22)
[2022-06-18] MEDS: HYDROmorphone HCL INJ (*CRX) 1 MG/ML SYR 0.5 MG IV PUSH ×2 (01:33→05:02)
[2022-06-18] MEDS: ONDANSETRON INJ 4 MG/2 ML VIAL IV PUSH ×3 (05:15→21:18)
[2022-06-18] MEDS: SODIUM CHLORIDE 0.9% IV 1,000 ML 125 ML IV CONT (05:25)
[2022-06-18 05:46] VITALS: BP 117/75; PULSE 66; RESP 14; TEMP 36.1; O2SAT 100
--- NOTE | 2022-06-18 07:02 | WPDGIPROGNO ---
Progress Note: A&P Assessment and Plan (1) Intractable vomiting: Code(s): R11.10 - Vomiting, unspecified Status: Acute Assessment and Plan: It appears that her symptoms are due to recurrence of pancreatitis. I suspect this is the 2nd episode of acute pancreatitis although her lipase is now normal. she has not vomited since admission. I will try her on a clear liquid diet today. 06/18/2022 she did so so with liquids last night. She does not feel hungry enough to try eating regular food get in fact has been nauseated for the hour prior to my visit. I will keep her on full liquids this morning. We will try to advance her diet then if she tolerates a full liquids (2) Chronic pancreatitis: Code(s): K86.1 - Other chronic pancreatitis Status: Acute Assessment and Plan: She had 1 prior episode of pancreatitis 6 months ago. She was told that she had a cyst draining into her stomach. It almost sounds as though she had endoscopic drainage of the pseudocyst but she does not I think that she had any endoscopy on her previous admission.. I discussed with her the fact that she needs to stop drinking alcohol altogether. She does not have a great deal of support because most of her friends, coworkers, and both her parents drink regularly. I do not think that she has chronic pancreatitis , such as chronic calcific pancreatitis with insufficiency. I brother believe that she has had 2 episodes of acute pancreatitis. (3) Duodenitis: Code(s): K29.80 - Duodenitis without bleeding Status: Acute Assessment and Plan: CT scan shows: Probable mild inflammatory change between the pancreatic head and duodenum. Consider peptic ulcer disease, duodenitis, or groove pancreatitis. Associated 1.1 cm low-density mass or cystic structure identified in the pancreatic head or within the pancreaticoduodenal groove. Correlate clinically. Consider short-term follow-up exam in 1-3 months to reassess. (4) Hypokalemia: Code(s): E87.6 - Hypokalemia Status: Acute Assessment and Plan: potassium was 2.9 at admission. It Has improved, now 3.2. (5) Abnormal liver function: Code(s): R94.5 - Abnormal results of liver function studies Status: Acute Assessment and Plan: on admission, bilirubin was 1.5. Now is 0.9. LFTs were also elevated but improving. (6) Abnormal CT scan, gastrointestinal tract: Code(s): R93.3 - Abnormal findings on diagnostic imaging of other parts of digestive tract Status: Acute Assessment and Plan: CT scan was read as; Impression: Probable mild inflammatory change between the pancreatic head and duodenum. Consider peptic ulcer disease, duodenitis, or groove pancreatitis. Associated 1.1 cm low-density mass or cystic structure identified in the pancreatic head or within the pancreaticoduodenal groove. Correlate clinically. Consider short-term follow-up exam in 1-3 months to reassess endoscopy only showed gastritis involving the antrum but no ulcerations or erosions. A specimen for H pylori was negative. Plan Will advance diet as tolerated. Further investigation probably EGD in the morning. Most poorly, she will need counseling and guidance with her alcohol problem Subjective Date/time seen: 06/18/22 07:02 She was able to tolerate some liquids last night. She had broth. About 1 hour ago she became extremely nauseated. She is not interested at all needing now but will continue to try eating. I told her that we do not need to force her to eat regular food yet. She is still requesting and requiring pain medication. Exam Const: General: alert Orientation/consciousness: patient oriented x3 Resp: Auscultation: clear to auscultation bilaterally Cardio: Rhythm: regular rhythm GI: GI Palp: Yes Soft to palpation, Yes Tenderness to palpation present (GI) ( Left upper quadrant), No Guarding due to palpation present (G
[2022-06-18 07:55] LABS: Glucose Point of Care 97 mg/dl (65-105)
[2022-06-18] MEDS: ALBUTEROL SULFATE (*SP) AEROSOL 1 PUFF 2 PUFF INHALATION (08:19)
[2022-06-18 08:21] VITALS: O2SAT 97
[2022-06-18] MEDS: THIAMINE HCL 100 MG TABLET PO (08:21)
[2022-06-18] MEDS: FOLIC ACID 1 MG TABLET PO (08:21)
--- NOTE | 2022-06-18 11:24 | PCNFU ---
Nutrition Follow-Up Complete: Unintended weight loss related to decreased appetite/inability to hold down food as evidenced by weight loss of 14 lbs (9%) x 1 week. Goal: 1. Diet to be advanced in the next 3 days. - Goal is met. Full liquid diet 2. Weight to remain within 2% of current weight (64.5 kg) through follow-up. - Goal being met so far Pt current nutrition is Full liquid diet. No intakes yet. Ensure compact ordered BID for additional 220 kcals and 9 g protein each. No intakes on supplements yet. Nutrition recommendation: Diet advancement per MD. Last recorded weight is 64.5 kg. Bowel Motility: No BMs charted Labs Reviewed: Na 136, BUN 6 Meds Noted: Zofran, thiamine, ativan Skin: WNL Additional Notes: Pt had EGD, GI notes state today that she is very nauseated and no appetite yet. Continuing on full liquids, advancement per MD. Follow up in 3 days
[2022-06-18 11:47] LABS: Glucose Point of Care 95 mg/dl (65-105)
--- NOTE | 2022-06-18 11:54 | P.PNIM_ITS ---
Progress Note: A&P Assessment and Plan (1) Recurrent acute pancreatitis: Code(s): K85.90 - Acute pancreatitis without necrosis or infection, unspecified Status: Acute Assessment and Plan: Patient presented to the ED with c/o nausea and vomiting since Tuesday of last week. She has h/o pancreatitis and chronic alcohol abuse. * CT of the abdomen was read as probable mild inflammatory change between the pancreatic head and duodenum. Consider peptic ulcer disease, duodenitis, or groove pancreatitis. Associated 1.1 cm low-density mass or cystic structure identified in the pancreatic head or within the pancreaticoduodenal groove. Correlate clinically. Consider short-term follow-up exam in 1-3 months to reassess. * GI consulted and appreciate recommendations. * The patient has been encouraged to stop drinking alcohol. Consult care coordination for resources. * Lipase level normal * continue IV/PO analgesics and antiemetics as needed. Encouraged oral analgesics. * continue IV fluids until taking good PO. * Pantoprazole BID * Full liquid diet advance as tolerated to low fat diet. * Started pancreatic enzymes with meals, per GI, today 06/18 (2) Abnormal liver function: Code(s): R94.5 - Abnormal results of liver function studies Status: Acute Assessment and Plan: on admission T bili 1.5, AST 74, ALT 69, alk phos 109 * CT shows liver within normal limits and patient is s/p cholecystectomy in the past * She does have history of chronic alcohol use. * Trend LFTs-T bili normalized and AST ALT trending down * GI is following * Hepatitis panel pending * Alcohol abstinence was discussed in length with patient (3) Gastritis: Code(s): K29.70 - Gastritis, unspecified, without bleeding Status: Acute Assessment and Plan: Suggested on CT scan. Patient does have epigastric pain with complaints of indigestion. * Continue PPI IV b.i.d. * EGD with moderate gastritis with WALTER pending (4) GERD (gastroesophageal reflux disease): Qualifiers: Esophagitis presence: without esophagitis Qualified Code(s): K21.9 - Gastro-esophageal reflux disease without esophagitis Code(s): K21.9 - Gastro-esophageal reflux disease without esophagitis Status: Acute Assessment and Plan: PPI as above. PRN mylanta (5) Hypokalemia: Code(s): E87.6 - Hypokalemia Status: Acute Assessment and Plan: K 2.7 on admission. Replace with p.o. and IV supplements. * 06/16 K 3.2, magnesium 1.9. Give potassium chloride 60 mEq p.o. x1 * 06/17 K 3.4 today, give 40 mEQ PO KCl x1 and start daily supplement. (6) Alcohol abuse: Code(s): F10.10 - Alcohol abuse, uncomplicated Status: Chronic Assessment and Plan: Chronic, last drink approximately 1 week ago per patient. * Counseled on alcohol cessation. * Care coordination consulted for community resources. * We discussed briefly Vivitrol medication management for alcohol abuse and she may be interested in pursuing this. * P.o. thiamine 100 mg daily and folic acid p.o. 1 mg daily initiated. * CIWA score 1-6 and stable. Last drink 8 days ago. (7) Tobacco use: Code(s): Z72.0 - Tobacco use Status: Chronic Assessment and Plan: The patient has been encouraged to stop smoking. She was offered a nicotine patch. We discussed smoking cessation for approximately 5 minutes. (8) HPV in female: Code(s): B97.7 - Papillomavirus as the cause of diseases classified elsewhere Status: Acu
--- NOTE | 2022-06-18 11:54 | PM.IMPN ---
Progress Note: A&P Assessment and Plan (1) Recurrent acute pancreatitis: Code(s): K85.90 - Acute pancreatitis without necrosis or infection, unspecified Status: Acute Assessment and Plan: Patient presented to the ED with c/o nausea and vomiting since Tuesday of last week. She has h/o pancreatitis and chronic alcohol abuse. CT of the abdomen was read as probable mild inflammatory change between the pancreatic head and duodenum. Consider peptic ulcer disease, duodenitis, or groove pancreatitis. Associated 1.1 cm low-density mass or cystic structure identified in the pancreatic head or within the pancreaticoduodenal groove. Correlate clinically. Consider short-term follow-up exam in 1-3 months to reassess. GI consulted and appreciate recommendations. The patient has been encouraged to stop drinking alcohol. Consult care coordination for resources. Lipase level normal continue IV/PO analgesics and antiemetics as needed. Encouraged oral analgesics. continue IV fluids until taking good PO. Pantoprazole BID Full liquid diet advance as tolerated to low fat diet. Started pancreatic enzymes with meals, per GI, today 06/18 (2) Abnormal liver function: Code(s): R94.5 - Abnormal results of liver function studies Status: Acute Assessment and Plan: on admission T bili 1.5, AST 74, ALT 69, alk phos 109 CT shows liver within normal limits and patient is s/p cholecystectomy in the past She does have history of chronic alcohol use. Trend LFTs-T bili normalized and AST ALT trending down GI is following Hepatitis panel pending Alcohol abstinence was discussed in length with patient (3) Gastritis: Code(s): K29.70 - Gastritis, unspecified, without bleeding Status: Acute Assessment and Plan: Suggested on CT scan. Patient does have epigastric pain with complaints of indigestion. Continue PPI IV b.i.d. EGD with moderate gastritis with WALTER pending (4) GERD (gastroesophageal reflux disease): Qualifiers: Esophagitis presence: without esophagitis Qualified Code(s): K21.9 - Gastro-esophageal reflux disease without esophagitis Code(s): K21.9 - Gastro-esophageal reflux disease without esophagitis Status: Acute Assessment and Plan: PPI as above. PRN mylanta (5) Hypokalemia: Code(s): E87.6 - Hypokalemia Status: Acute Assessment and Plan: K 2.7 on admission. Replace with p.o. and IV supplements. 06/16 K 3.2, magnesium 1.9. Give potassium chloride 60 mEq p.o. x1 06/17 K 3.4 today, give 40 mEQ PO KCl x1 and start daily supplement. (6) Alcohol abuse: Code(s): F10.10 - Alcohol abuse, uncomplicated Status: Chronic Assessment and Plan: Chronic, last drink approximately 1 week ago per patient. Counseled on alcohol cessation. Care coordination consulted for community resources. We discussed briefly Vivitrol medication management for alcohol abuse and she may be interested in pursuing this. P.o. thiamine 100 mg daily and folic acid p.o. 1 mg daily initiated. CIWA score 1-6 and stable. Last drink 8 days ago. (7) Tobacco use: Code(s): Z72.0 - Tobacco use Status: Chronic Assessment and Plan: The patient has been encouraged to stop smoking. She was offered a nicotine patch. We discussed smoking cessation for approximately 5 minutes. (8) HPV in female: Code(s): B97.7 - Papillomavirus as the cause of diseases classified elsewhere Status: Acute Assessment and Plan: The patient stated that she was scheduled for colposcopy due to abnormal cervical cells and positive for HPV. However the patient was feeling ill and did not make it to her appointment. Patient will need to reschedule her outpatient appointment. Plan Code status: Full code Discharge disposition: Patient is from home. Discharge when tolerating a low-fat diet. Time Spent Wit
[2022-06-18] MEDS: ONDANSETRON HCL ODT 4 MG TABLET PO (11:56)
[2022-06-18] MEDS: polyethylene glycoL 3350 17 GM POWD.PACK PO (12:03)
[2022-06-18] MEDS: MAG HYDROX/AL HYDROX/SIMETH 30 ML UDC PO (12:03)
[2022-06-18] MEDS: ALPRAZolam (*CRX) 0.25 MG TABLET PO ×3 (12:03→20:30)
[2022-06-18] MEDS: LIPASE/AMYLASE/PROTEASE 12,000 UNITS CAP 2 CAP PO ×2 (12:31→16:16)
[2022-06-18 14:00] VITALS: BP 115/81; PULSE 77; RESP 16; TEMP 36.4; O2SAT 100
[2022-06-18 19:45] VITALS: PULSE 77; RESP 16; O2SAT 100
[2022-06-18] MEDS: MELATONIN 5 MG TABLET PO (20:23)
[2022-06-18] MEDS: PANTOPRAZOLE 40 MG TABLET PO (20:24)
[2022-06-18 21:57] VITALS: BP 103/77; PULSE 71; RESP 20; TEMP 36.4; O2SAT 100
[2022-06-19] MEDS: HYDROcodone/acetaminophen (*CRX) 5-325 MG TABLET 1 TAB PO ×3 (00:15→10:33)
[2022-06-19] MEDS: ONDANSETRON HCL ODT 4 MG TABLET PO ×3 (00:22→10:34)
[2022-06-19 06:00] VITALS: BP 116/70; PULSE 69; RESP 20; TEMP 36.8; O2SAT 96
[2022-06-19 06:50] LABS: Hematocrit 39.7 % (37.0-47.0); Hemoglobin 13.3 g/dL (12.0-15.0); Mean Corpuscular HGB Conc 33.5 g/dl (32-36); Mean Corpuscular Hemoglobin 35.3 pg (26-34); Mean Corpuscular Volume 105.3 fl (80-100); Mean Platelet Volume 9.3 fl (7.4-10.4); Platelet Count Result 189 k/mm3 (150-375); Red Blood Count 3.77 M/mm3 (4.2-5.4); Red Cell Distribution Width 12.1 % (11.5-14.5)
[2022-06-19] MEDS: THIAMINE HCL 100 MG TABLET PO (07:42)
[2022-06-19] MEDS: LIPASE/AMYLASE/PROTEASE 12,000 UNITS CAP 2 CAP PO ×2 (07:42→12:51)
[2022-06-19] MEDS: polyethylene glycoL 3350 17 GM POWD.PACK PO (07:42)
[2022-06-19] MEDS: MAG HYDROX/AL HYDROX/SIMETH 30 ML UDC PO ×2 (07:43→12:51)
[2022-06-19] MEDS: FOLIC ACID 1 MG TABLET PO (07:43)
[2022-06-19] MEDS: ALPRAZolam (*CRX) 0.25 MG TABLET PO ×2 (07:43→12:51)
[2022-06-19] MEDS: PANTOPRAZOLE 40 MG TABLET PO (07:43)
[2022-06-19] MEDS: ONDANSETRON INJ 4 MG/2 ML VIAL IV PUSH (07:43)
[2022-06-19 08:27] LABS: Alanine Aminotransferase 39 U/L (6-35); Albumin Level 3.3 g/dL (3.5-5.1); Alkaline Phosphatase 49 U/L (38-126); Anion Gap 7 mmol/L (8-16); Aspartate Amino Transferase 23 U/L (14-36); Bilirubin,Total 0.4 mg/dL (0.2-1.3); Blood Urea Nitrogen 3 mg/dL (7-17); Calcium 8.4 mg/dL (8.4-10.2); Carbon Dioxide 24 mmol/L (22-30); Chloride 104 mmol/L (98-107); Estimated CRCL calculation 80 ml/min; Estimated Glomerular Filt Rate > 60; Glucose 91 mg/dL (65-110); Potassium 3.8 mmol/L (3.4-5.0); Sodium 135 mmol/L (137-145)
--- NOTE | 2022-06-19 09:21 | WPDGIPROGNO ---
Progress Note: A&P Assessment and Plan (1) Intractable vomiting: Code(s): R11.10 - Vomiting, unspecified Status: Acute Assessment and Plan: It appears that her symptoms are due to recurrence of pancreatitis. I suspect this is the 2nd episode of acute pancreatitis although her lipase is now normal. she has not vomited since admission. I will try her on a clear liquid diet today. 06/18/2022 she did so so with liquids last night. She does not feel hungry enough to try eating regular food get in fact has been nauseated for the hour prior to my visit. I will keep her on full liquids this morning. We will try to advance her diet then if she tolerates a full liquids 06/19/2022 no further vomiting. Tolerating low-fat diet. (2) Chronic pancreatitis: Code(s): K86.1 - Other chronic pancreatitis Status: Inactive Assessment and Plan: She had 1 prior episode of pancreatitis 6 months ago. She was told that she had a cyst draining into her stomach. It almost sounds as though she had endoscopic drainage of the pseudocyst but she does not I think that she had any endoscopy on her previous admission.. I discussed with her the fact that she needs to stop drinking alcohol altogether. She does not have a great deal of support because most of her friends, coworkers, and both her parents drink regularly. I do not think that she has chronic pancreatitis , such as chronic calcific pancreatitis with insufficiency. I brother believe that she has had 2 episodes of acute pancreatitis. 06/19/2022 I told her that as long she stays away from alcohol, she is not likely to have further problems with her pancreas. Because of the probable pseudocyst seen in the head of the pancreas on imaging, I told her that I want to repeat that study in a couple of months. I will have her follow-up with me in the office in 3 weeks (3) Duodenitis: Code(s): K29.80 - Duodenitis without bleeding Status: Inactive Assessment and Plan: CT scan shows: Probable mild inflammatory change between the pancreatic head and duodenum. Consider peptic ulcer disease, duodenitis, or groove pancreatitis. Associated 1.1 cm low-density mass or cystic structure identified in the pancreatic head or within the pancreaticoduodenal groove. Correlate clinically. Consider short-term follow-up exam in 1-3 months to reassess. 06/19/2022 findings were minimal on endoscopy. H pylori was negative (4) Hypokalemia: Code(s): E87.6 - Hypokalemia Status: Acute Assessment and Plan: potassium was 2.9 at admission. It Has improved, now 3.2. (5) Abnormal liver function: Code(s): R94.5 - Abnormal results of liver function studies Status: Acute Assessment and Plan: on admission, bilirubin was 1.5. Now is 0.9. LFTs were also elevated but improving. (6) Abnormal CT scan, gastrointestinal tract: Code(s): R93.3 - Abnormal findings on diagnostic imaging of other parts of digestive tract Status: Acute Assessment and Plan: CT scan was read as; Impression: Probable mild inflammatory change between the pancreatic head and duodenum. Consider peptic ulcer disease, duodenitis, or groove pancreatitis. Associated 1.1 cm low-density mass or cystic structure identified in the pancreatic head or within the pancreaticoduodenal groove. Correlate clinically. Consider short-term follow-up exam in 1-3 months to reassess endoscopy only showed gastritis involving the antrum but no ulcerations or erosions. A specimen for H pylori was negative. Plan From my perspective she can be discharged low-fat diet Creon 2 capsules with each meal for 3 weeks follow-up in office for [address] scan in 1- 2 months no alcohol. She will need to join a support group Subjective Date/time seen: 06/19/22 09:21 she is feeling good this morning she just finished her breakfast and has had no abdominal pain as re
[2022-06-19 10:45] VITALS: O2SAT 98
[2022-06-19] MEDS: ALBUTEROL SULFATE (*SP) AEROSOL 1 PUFF 2 PUFF INHALATION (10:45)
--- NOTE | 2022-06-19 12:33 | P.DS_ITS ---
DS: Admitting Diagnosis Discharge Date 06/19/2022 Admitting Diagnosis Pancreatitis Tobacco dependence DS: Discharge Diagnosis Discharge Diagnosis (1) Recurrent acute pancreatitis: Code(s): K85.90 - Acute pancreatitis without necrosis or infection, unspecified Status: Acute Assessment and Plan: Patient presented to the ED with c/o nausea and vomiting since Tuesday of last week. She has h/o pancreatitis and chronic alcohol abuse. * CT of the abdomen was read as probable mild inflammatory change between the pancreatic head and duodenum. Consider peptic ulcer disease, duodenitis, or groove pancreatitis. Associated 1.1 cm low-density mass or cystic structure identified in the pancreatic head or within the pancreaticoduodenal groove. * GI consulted and appreciate recommendations. * The patient encouraged to stop drinking alcohol. Consulted care coordination for resources. * Lipase level was within normal range, however patient has symptoms consistent with recurrent acute pancreatitis. * continue IV/PO analgesics and antiemetics as needed. Encouraged oral analgesics. * continue IV fluids until taking good PO. * Pantoprazole BID IV/p.o. given * 06/18 diet advanced from full liquid diet to low fat diet. * Started pancreatic enzymes with meals, per GI, 06/18 and will continue for 3 weeks after discharge (2) Abnormal liver function: Code(s): R94.5 - Abnormal results of liver function studies Status: Acute Assessment and Plan: on admission T bili 1.5, AST 74, ALT 69, alk phos 109 * CT shows liver within normal limits and patient is s/p cholecystectomy in the past * She does have history of chronic alcohol use. * Trend LFTs-T bili normalized and AST ALT trending down * GI is following * Hepatitis panel negative * Alcohol abstinence was discussed in length with patient (3) Gastritis: Code(s): K29.70 - Gastritis, unspecified, without bleeding Status: Acute Assessment and Plan: Suggested on CT scan. Patient does have epigastric pain with complaints of indigestion. * Continue PPI IV b.i.d. * EGD with moderate gastritis and negative H pylori per GI notes (4) GERD (gastroesophageal reflux disease): Qualifiers: Esophagitis presence: without esophagitis Qualified Code(s): K21.9 - Gastro-esophageal reflux disease without esophagitis Code(s): K21.9 - Gastro-esophageal reflux disease without esophagitis Status: Acute Assessment and Plan: PPI as above. PRN mylanta. Continue PPI at discharge and instructed to avoid NSAIDs. (5) Hypokalemia: Code(s): E87.6 - Hypokalemia Status: Resolved Assessment and Plan: K 2.7 on admission. Replace with p.o. and IV supplements. * 06/16 K 3.2, magnesium 1.9. Give potassium chloride 60 mEq p.o. x1 * 06/17 K 3.4, give 40 mEQ PO KCl x1 and start daily supplement. * K 3.8 at discharge and patient not receiving oral supplements times 48 hours (6) Alcohol abuse: Code(s): F10.10 - Alcohol abuse, uncomplicated Status: Chronic Assessment and Plan: Chronic, last drink approximately 1 week ago per patient. * Counseled on alcohol cessation. * Care coordination consulted for community resources. * We discussed briefly Vivitrol medication management for alcohol abuse and she may be interested in pursuing this. * P.o. thiamine 100 mg daily and folic acid p.o. 1 mg daily initiated while inpatient. * We discussed taking a multivitamin at home * CIWA score 1-6 and stable. Last drink 8 day
--- NOTE | 2022-06-19 12:33 | PM.DS ---
DS: Admitting Diagnosis Discharge Date 06/19/2022 Admitting Diagnosis Pancreatitis Tobacco dependence DS: Discharge Diagnosis Discharge Diagnosis (1) Recurrent acute pancreatitis: Code(s): K85.90 - Acute pancreatitis without necrosis or infection, unspecified Status: Acute Assessment and Plan: Patient presented to the ED with c/o nausea and vomiting since Tuesday of last week. She has h/o pancreatitis and chronic alcohol abuse. CT of the abdomen was read as probable mild inflammatory change between the pancreatic head and duodenum. Consider peptic ulcer disease, duodenitis, or groove pancreatitis. Associated 1.1 cm low-density mass or cystic structure identified in the pancreatic head or within the pancreaticoduodenal groove. GI consulted and appreciate recommendations. The patient encouraged to stop drinking alcohol. Consulted care coordination for resources. Lipase level was within normal range, however patient has symptoms consistent with recurrent acute pancreatitis. continue IV/PO analgesics and antiemetics as needed. Encouraged oral analgesics. continue IV fluids until taking good PO. Pantoprazole BID IV/p.o. given 06/18 diet advanced from full liquid diet to low fat diet. Started pancreatic enzymes with meals, per GI, 06/18 and will continue for 3 weeks after discharge (2) Abnormal liver function: Code(s): R94.5 - Abnormal results of liver function studies Status: Acute Assessment and Plan: on admission T bili 1.5, AST 74, ALT 69, alk phos 109 CT shows liver within normal limits and patient is s/p cholecystectomy in the past She does have history of chronic alcohol use. Trend LFTs-T bili normalized and AST ALT trending down GI is following Hepatitis panel negative Alcohol abstinence was discussed in length with patient (3) Gastritis: Code(s): K29.70 - Gastritis, unspecified, without bleeding Status: Acute Assessment and Plan: Suggested on CT scan. Patient does have epigastric pain with complaints of indigestion. Continue PPI IV b.i.d. EGD with moderate gastritis and negative H pylori per GI notes (4) GERD (gastroesophageal reflux disease): Qualifiers: Esophagitis presence: without esophagitis Qualified Code(s): K21.9 - Gastro-esophageal reflux disease without esophagitis Code(s): K21.9 - Gastro-esophageal reflux disease without esophagitis Status: Acute Assessment and Plan: PPI as above. PRN mylanta. Continue PPI at discharge and instructed to avoid NSAIDs. (5) Hypokalemia: Code(s): E87.6 - Hypokalemia Status: Resolved Assessment and Plan: K 2.7 on admission. Replace with p.o. and IV supplements. 06/16 K 3.2, magnesium 1.9. Give potassium chloride 60 mEq p.o. x1 06/17 K 3.4, give 40 mEQ PO KCl x1 and start daily supplement. K 3.8 at discharge and patient not receiving oral supplements times 48 hours (6) Alcohol abuse: Code(s): F10.10 - Alcohol abuse, uncomplicated Status: Chronic Assessment and Plan: Chronic, last drink approximately 1 week ago per patient. Counseled on alcohol cessation. Care coordination consulted for community resources. We discussed briefly Vivitrol medication management for alcohol abuse and she may be interested in pursuing this. P.o. thiamine 100 mg daily and folic acid p.o. 1 mg daily initiated while inpatient. We discussed taking a multivitamin at home CIWA score 1-6 and stable. Last drink 8 days ago. (7) Tobacco use: Code(s): Z72.0 - Tobacco use Status: Chronic Assessment and Plan: Current, everyday smoker approximately half pack per day the patient has been encouraged to stop smoking. nicotine patch given while inpatient. 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
--- NOTE | 2022-06-19 16:18 | PC.NURSE ---
Patient called stating that her insurance won't cover her Creon due to an [place] MD prescribing a medication and being filled in [place]. This RN notified Dr. Bell that patient is unable to obtain this medication. Per Dr. Bell patient was to supplement with a low fat diet and is okay to not take until Tuesday so they can discuss with their PCP. Patient updated and made aware. Patient voiced understanding.
== END 2022-06-19 14:05 | disposition home or self-care (01) | DRG 282 ==
LOC: ANHED 10:04 → ANH3MEDSUR 16:03
PROVIDERS: Internal Medicine Critical Care Medicine; Internal Medicine Gastroenterology; Nurse Practitioner; Admitting Provider Internal Medicine; Emergency Provider Emergency Medicine; Visit Provider Nurse Practitioner Family
PROC: 0DJ08ZZ Inspection of Upper Intestinal Tract, Via Natural or Artificial Opening Endoscopic (ICD-10-PCS; CPT 43235; principal; 2022-06-17 15:45)
DX: K85.90 Acute pancreatitis without necrosis or infection, unspecified (principal); E87.6 Hypokalemia; K21.9 Gastro-esophageal reflux disease without esophagitis; K29.70 Gastritis, unspecified, without bleeding; K86.9 Disease of pancreas, unspecified; R94.5 Abnormal results of liver function studies; R82.71 Bacteriuria; F17.210 Nicotine dependence, cigarettes, uncomplicated; F10.20 Alcohol dependence, uncomplicated
CPT/HCPCS: 36415; 74177; 80053; 80074; 81001; 81025; 82948; 83605; 83690; 83735; 84132; 84443; 85025; 85027; 85610; 85730; 87077; 87081; 87086; 87088; 87186; 93005; 94640; 96361; 96365; 96366; 96374; 96375; 99285; A9270; C9113; G0378; J1170; J1885; J2060; J2405; J2550; J2704; J3010; J3480; J7030; J7040; J7120; Q9967

== ENCOUNTER 2023-09-25 12:10 | Emergency (ER) | payer MEDICAID, SELFPAY ==
--- NOTE | ~2023-09-25 | XR_ITS ---
XR hip LT 2V w AP pelvis DATE: 09/25/2023 12:52 INDICATION: Injury from fall TECHNIQUE: AP pelvis. AP and lateral views of left hip. COMPARISON: None FINDINGS: No pelvic fracture or bone destruction. Normal alignment at the pubic symphysis and sacroil iac joints. No fracture or dislocation, avascular necrosis or bone destruction of the left hip. Left hip joint sp surjit appears relatively well preserved. IMPRESSION: Negative Reviewed, dictated and finalized at location J. IMPRESSION: Negative
--- NOTE | ~2023-09-25 | XR_ITS ---
XR foot LT min 3V DATE: 09/25/2023 12:52 INDICATION: Trauma TECHNIQUE: 4 views COMPARISON: None FINDINGS: There is a virtually nondisplaced linear oblique fracture of the cuboid bone with extension into the fourth tarsal metatarsal joint. No other fracture or dislocation is evident. No periosteal reaction or bone destruction. IMPRESSION: Virtually nondisplaced linear oblique fracture of the cuboid bone with intra-articular ex tension at the fourth tarsometatarsal joint Reviewed, dictated and finalized at location J. IMPRESSION: Virtually nondisplaced linear oblique fracture of the cuboid bone w ith intra-articular extension at the fourth tarsometatarsal joint
[2023-09-25 12:16] VITALS: BP 143/76; PULSE 95; RESP 21; TEMP 37; O2SAT 100
--- NOTE | 2023-09-25 12:28 | ED.GENADULT ---
HPI - General Adult General Chief complaint: Extremity Injury, Lower Stated complaint: Left foot injury Time Seen by Provider: 09/25/23 12:13 History of Present Illness HPI narrative: 33-year-old female presents to the emergency department for evaluation for left foot pain. Patient reports that she had a fall on while walking down stairs and injured her left hip and left foot. Patient states she did present to [facility] for evaluation was told she had a fracture and patient was provided splint and crutches. Patient was told to have outpatient follow-up. Patient states that the splint has fallen apart and she has had worsened pain. Related Data Home Medications Medication Instructions Recorded Confirmed esomeprazole magnesium 20 mg 20 mg PO DAILY 06/14/22 06/14/22 capsule,delayed release (Nexium) Allergies Allergy/AdvReac Type Severity Reaction Status Date / Time epinephrine AdvReac Muscle Verified 09/25/23 12:22 Spasms Review of Systems Review of Systems: All systems reviewed & are unremarkable except as noted in HPI and below PMFSH Past Medical History Medical History (Updated 09/25/23 @ 13:29 by Baldomero Smith MD) Chronic pancreatitis HPV in female Surgical History Surgical History H/O oral surgery History of cholecystectomy Family History Family History Mother Hypertension Diabetes mellitus Cervical cancer Grandparent Breast cancer Social History Social History Social History: She lives with parents . She has no children. She works at [employer] . She smokes cigarettes 1ppk. She smokes marijuana. She occasionally drinks a shot of whiskey. Code status full code Smoking packs per day: 0.5 Smoking cigarettes per day: 10.0 Smoking status: Current every day smoker Tobacco type: cigarettes Alcohol intake: current Substance use type: marijuana Lack of Transportation: YES Lack of Food: Sometimes True Current Housing: I Have Housing Concerned About Future Housing: No Difficulty Paying Gas/Electric Bills: YES Difficulty Paying for Meds: YES Currently Unemployed: No Education: High School Diploma/GED Difficulty w/ Childcare or Family Care: No Spiritual care concerns: No Exam Narrative: APPEARANCE: Patient had a very have a very disheveled splint HEAD: normocephalic, atraumatic. EYES: PERRLA/EOMI, conjunctivae clear. NOSE: Normal no drainage EARS:TMS clear with good light reflex. THROAT: Pharynx clear, no exudate. NECK: Supple. No adenopathy, no masses. RESPIRATORY: Airway patent, respirations nonlabored. Clear to auscultation bilaterally, no rales, rhonchi, wheezing. CARDIOVASCULAR: Regular rate and rhythm without murmurs rubs or gallops. ABDOMINAL: Soft, nontender, nondistended, normal bowel sounds MUSCULOSKELETAL: Tenderness to the dorsum of the left foot, no tenderness to leg or ankle. Neurovascularly intact NEURO: Alert. Cranial nerves II through XII intact. Grossly intact SKIN: Warm, dry. Normal Color Course Vital Signs Vital signs: Vital Signs Temperature 98.6 F 09/25/23 12:16 Pulse Rate 95 09/25/23 12:16 Respiratory Rate 21 H 09/25/23 12:16 Blood Pressure 143/76 H 09/25/23 12:16 Pulse Oximetry 100 09/25/23 12:16 Oxygen Delivery Room Air 09/25/23 12:16 Temperature 98.6 F 09/25/23 12:16 Pulse Rate 95 09/25/23 12:16 Respiratory Rate 21 H 09/25/23 12:16 Blood Pressure 143/76 H 09/25/23 12:16 Pulse Oximetry 100 09/25/23 12:16 Oxygen Delivery Room Air 09/25/23 12:16 Medical Decision Making [facility] Narrative Medical decision making narrative: 33-year-old female presents present to the emergency department for evaluation for worsening foot pain. Patient's splint was exchanged. Patient does have a cuboid fracture
== END 2023-09-25 13:50 | disposition home or self-care (01) ==
PROVIDERS: Emergency Provider Emergency Medicine
DX: S92.215A Nondisplaced fracture of cuboid bone of left foot, initial encounter for closed fracture (principal); S76.012A Strain of muscle, fascia and tendon of left hip, initial encounter; W10.9XXA Fall (on) (from) unspecified stairs and steps, initial encounter
CPT/HCPCS: 29515; 73502; 73630; 99284